=== PATIENT | female | born 1960 | race Caucasian/White ===

== ENCOUNTER → 2016-08-02 | Outpatient (REF) | payer BC | LOC: M SFHCWAGY 13:37 | PROVIDERS: ATTEND Nurse Practitioner Women's Health | DX: R87.810 Cervical high risk human papillomavirus (HPV) DNA test positive (principal) ==

== ENCOUNTER → 2017-01-28 | Outpatient (REF) | payer BC | LOC: M SFHCWAGY 15:10 | PROVIDERS: ATTEND Nurse Practitioner Women's Health | DX: R87.810 Cervical high risk human papillomavirus (HPV) DNA test positive (principal); R87.612 Low grade squamous intraepithelial lesion on cytologic smear of cervix (LGSIL) ==

== ENCOUNTER → 2018-01-31 | Outpatient (CLI) | payer BC | LOC: M WHC 09:22 | DX: Z12.31 Encounter for screening mammogram for malignant neoplasm of breast (principal); Z78.0 Asymptomatic menopausal state | CPT/HCPCS: G0123 ==

== ENCOUNTER → 2018-01-31 | Outpatient (REF) | payer BC | LOC: M SFHCWAGY 09:24 | DX: Z12.4 Encounter for screening for malignant neoplasm of cervix (principal) ==

== ENCOUNTER 2018-07-06 10:25 | Emergency (ER) | payer BC ==
[~2018-07-06] VITALS: Ht 160 cm; Wt 104.5 kg
[2018-07-06] MEDS ORDERED: MAGN500C PO (10:33)
[2018-07-06] MEDS ORDERED: [UNRECOGNIZED DRUG - CODE] PO (10:33)
[2018-07-06] MEDS ORDERED: NS 1,000 ML IV ONE (11:00)
[2018-07-06] MEDS ORDERED: KETOROLAC 30 MG/ML VIAL (J1885) IV ONE (11:00)
[2018-07-06] MEDS ORDERED: ONDANSETRON 4MG/2ML VIAL (J2405) IV ONE (11:00)
[2018-07-06] MEDS ORDERED: GASTROGRAFIN SOLUTION 30ML (Q9963) As Ordered ONE (11:05)
[2018-07-06] MEDS: GASTROGRAFIN SOLUTION 30ML PO SCH ×2 (11:16→11:42)
[2018-07-06 11:26] LABS: BASO % 0.6 % (0.0-1.0); EOS # 0.1 10^3/uL (0.0-0.50); EOS % 1.9 % (0.0-3.0); HEMATOCRIT 34.9 % (36.0-47.0); LYMPH % 28.1 % (24.0-44.0); MEAN CORPUSCULAR HEMOGLOBIN 28.4 pg (27.0-33.0); MEAN CORPUSCULAR HGB CONC 31.5 g/dl (32.0-36.5); MEAN CORPUSCULAR VOLUME 89.9 fl (80.0-96.0); MONO # 0.5 10^3/uL (0.0-0.8); MONO % 6.8 % (0.0-5.0); NEUTROPHILS # 4.3 10^3/uL (1.8-7.7); NEUTROPHILS % 62.5 % (36.0-66.0); PLATELET COUNT, AUTOMATED 327 10^3/uL (150-450); RED BLOOD COUNT 3.88 10^6/uL (4.00-5.40); WHITE BLOOD COUNT 6.9 10^3/uL (4.0-10.0)
[2018-07-06 11:29] LABS: APPEARANCE, URINE CLEAR (CLEAR); BACTERIA, URINE AUTO NEGATIVE (NEGATIVE); BILIRUBIN, URINE AUTO NEGATIVE (NEGATIVE); BLOOD, URINE BLOOD NEGATIVE (NEGATIVE); COLOR, URINE STRAW (YELLOW); GLUCOSE, URINE (UA) AUTO NEGATIVE (NEGATIVE); KETONE, URINE AUTO NEGATIVE (NEGATIVE); LEUKOCYTE ESTERASE, URINE AUTO NEGATIVE (NEGATIVE); NITRITE, URINE AUTO NEGATIVE (NEGATIVE); PROTEIN, URINE AUTO NEGATIVE (NEGATIVE); RBC, URINE AUTO 1 /HPF (0-3); SPECIFIC GRAVITY URINE AUTO 1.003 (1.002-1.035); SQUAMOUS EPITHELIAL CELL UR AU 0 /HPF (0-6); UROBILINOGEN, URINE AUTO 0.2 mg/dL (0.0-2.0); WBC, URINE AUTO 0 /HPF (0-3)
[2018-07-06 12:01] LABS: ALBUMIN 3.4 GM/DL (3.2-5.2); ALT/SGPT 17 U/L (12-78); BILIRUBIN,TOTAL 0.5 MG/DL (0.2-1.0); BLOOD UREA NITROGEN 10 MG/DL (7-18); CALCIUM LEVEL 8.4 MG/DL (8.5-10.1); CARBON DIOXIDE LEVEL 31 MEQ/L (21-32); CHLORIDE LEVEL 105 MEQ/L (98-107); CREATININE FOR GFR 0.72 MG/DL (0.55-1.30); GLOMERULAR FILTRATION RATE > 60.0 (>51); GLUCOSE, FASTING 89 MG/DL (70-100); LIPASE 151 U/L (73-393); POTASSIUM SERUM 3.5 MEQ/L (3.5-5.1); SODIUM LEVEL 143 MEQ/L (136-145); TOTAL PROTEIN 6.7 GM/DL (6.4-8.2)
[2018-07-06] MEDS ORDERED: ISOVUE-370 76% 100ML VIAL (Q9967) As Ordered ONE (12:36)
--- NOTE | 2018-07-06 13:23 | REP ---
CT abdomen and pelvis with IV and oral contrast: History: History of gastric bypass. Bloody stools and abdomen pain. Comparison study: August 06, 2008. CT contrast dose: 100 mL of intravenous Isovue 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 There are scattered small and large bowel air filled loops in the abdomen. The lung bases are clear on axial CT images. The liver and the spleen are normal in size homogeneous in texture. A gastric bypass has been performed, charles-colic technique. There are air-fluid levels in mildly prominent small bowel loops in the central abdomen but no obstructive lesion is seen. A normal appendix is observed. The colon is not dilated. The uterus is tipped to the left somewhat. Urinary bladder is intact. No abdominal wall defect is seen. Kidneys enhance symmetrically and are morphologically intact. There is a 4 mm calculus in the right kidney upper pole. 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 I am not able to tell whether the ureters merge. There is no evidence of hydronephrosis or hydroureter. No abdominal wall defect is seen. No bony abnormality. Impression: Status post gastric bypass procedure and cholecystectomy. There are a few mildly dilated loops in the central abdomen. No obstructive lesion is seen. Left ureteral duplication anomaly. Intrarenal calculus upper pole right kidney 4 mm in diameter. Normal appendix. Electronically Signed by Severiano Salcido MD 07/06/2018 03:10 P
[2018-07-06] MEDS ORDERED: PROT1TAB2 PO (13:29)
[2018-07-06] MEDS ORDERED: CARA1TAB6 PO (13:29)
[2018-07-06] MEDS ORDERED: CIPR-249 PO (13:29)
[2018-07-06] MEDS ORDERED: DICY20TA PO (13:29)
[2018-07-06] MEDS ORDERED: FLOM0.4C39 PO (13:39)
[2018-07-06] MEDS ORDERED: DICYCLOMINE 10 MG CAP PO ONE (13:45)
[2018-07-06] MEDS ORDERED: PANTOPRAZOLE 40MG TAB (PROTONIX) PO ONE (13:45)
[2018-07-06] MEDS ORDERED: GI COCKTAIL 50ML BTL(HYOSCYAMINE/MAALOX/LIDOCAINE VISCOUS)(1:3:1) PO ONE (13:45)
[2018-07-06 13:54] VITALS: BP 132/71
== END 2018-07-06 13:55 | disposition home or self-care (01) ==
LOC: M ED 10:25
DX: R10.9 Unspecified abdominal pain (principal); R11.2 Nausea with vomiting, unspecified; D64.9 Anemia, unspecified; K92.1 Melena
CPT/HCPCS: 74177; 80053; 81001; 83690; 85025; 96374; 96375; 99284; J1885; J2405; Q9967

== ENCOUNTER → 2018-07-25 | Outpatient (REF) | payer BC ==
[~2018-07-25] MED LIST: CARA1TAB6 PO; CIPR-249 PO; DICY20TA PO; FERR325T3 PO; FLOM0.4C39 PO; MAGN500C PO; PROT1TAB2 PO; [UNRECOGNIZED DRUG - CODE] PO
[2018-07-25 20:58] LABS: PERCENT SATURATION 5.9 % (13.2-45.0)
== END ==
LOC: M LAB REF 18:53
PROVIDERS: ATTEND Family Medicine
DX: Z98.84 Bariatric surgery status (principal)

== ENCOUNTER 2018-08-07 07:23 | Day surgery (SDC) | payer BC ==
[~2018-08-07] VITALS: Ht 160 cm; Wt 108.0 kg
[~2018-08-07 07:23] MED LIST changes: +LIDOCAINE 2% INJ 100 MG/5 ML SDV (FOR ANES.) As Ordered ONE
[2018-08-07] MEDS ORDERED: fentaNYL 100 MCG/2 ML INJECTION (J3010) As Ordered ONE (08:00)
[2018-08-07] MEDS ORDERED: PROPOFOL 200 MG/20 ML VIAL As Ordered ONE (08:01)
[2018-08-07] MEDS ORDERED: NS 1,000 ML IV ONE (08:30)
--- NOTE | 2018-08-07 08:52 | ROOR ---
Patient Name: Dalila Li Procedure Date: 08/07/2018 8:35 AM Date of : 1960 Age: 58 Room: [facility] Gender: Female Note Status: Finalized Procedure: Upper Endoscopy + Biopsies Indications: Epigastric abdominal pain, Nausea with vomiting Providers: Luis Reyes MD Referring MD: Thad Duque MD Requesting Provider: Medicines: Monitored Anesthesia Care Complications: No immediate complications. Procedure: Pre-Anesthesia Assessment: - The heart rate, respiratory rate, oxygen saturations, blood pressure, adequacy of pulmonary ventilation, and response to care were monitored throughout the procedure. The Endoscope was introduced through the mouth, and advanced to the second part of duodenum. The upper GI endoscopy was accomplished without difficulty. The patient tolerated the procedure well. Findings: The Z-line was regular and was found 35 cm from the incisors. Evidence of a gastric bypass was found. A gastric pouch with a small size was found. The staple line appeared intact. The gastrojejunal anastomosis was characterized by healthy appearing mucosa. This was traversed. The thezr-im-[id number] limb was characterized by healthy appearing mucosa. Biopsies were taken with a cold forceps for Helicobacter pylori testing. The exam was otherwise without abnormality. Impression: - Z-line regular, 35 cm from the incisors. - Gastric bypass with a small-sized pouch and intact staple line. Gastrojejunal anastomosis characterized by healthy appearing mucosa. Biopsied. - The examination was otherwise normal. Recommendation: - Patient has a contact number available for emergencies. The signs and symptoms of potential delayed complications were discussed with the patient. Return to normal activities tomorrow. Written discharge instructions were provided to the patient. - Resume previous diet. - Discharge patient to home. - Continue present medications. - Await pathology results. - Telephone GI clinic for pathology results in 1 week. - Return to referring physician. - The findings and recommendations were discussed with the patient's family. Luis Reyes MD Luis Reyes MD 08/07/2018 8:52:14 AM This report has been signed electronically. Number of Addenda: 0 Note Initiated On: 08/07/2018 8:35 AM Estimated Blood Loss: Estimated blood loss: none.
[2018-08-07 09:10] VITALS: BP 123/78
== END 2018-08-07 09:15 | disposition home or self-care (01) ==
LOC: M OPP 07:23
PROVIDERS: ATTEND Internal Medicine Gastroenterology
DX: Z98.84 Bariatric surgery status (principal); R10.13 Epigastric pain; R11.2 Nausea with vomiting, unspecified; D64.9 Anemia, unspecified; Z79.899 Other long term (current) drug therapy; Z87.891 Personal history of nicotine dependence
CPT/HCPCS: 43239; 88305; J3010

== ENCOUNTER → 2018-08-25 | Outpatient (REF) | payer BC ==
[~2018-08-25] MED LIST changes: -LIDOCAINE 2% INJ 100 MG/5 ML SDV (FOR ANES.) As Ordered ONE
== END ==
LOC: M LAB REF 11:59
PROVIDERS: ATTEND Family Medicine
DX: D64.9 Anemia, unspecified (principal)

== ENCOUNTER → 2018-12-26 | Outpatient (REF) | payer BC ==
[~2018-12-26] MED LIST changes: +CALC-333 PO; -[UNRECOGNIZED DRUG - CODE] PO
== END ==
LOC: M LAB REF 16:43
PROVIDERS: ATTEND Family Medicine
DX: D64.9 Anemia, unspecified (principal)

== ENCOUNTER → 2019-02-01 | Outpatient (CLI) | payer BC ==
--- NOTE | 2019-02-01 12:30 | REPMRS ---
Patient History The patient states she had a clinical breast exam in 01/2019. Family history of colorectal cancer at age 50 or over in father, breast cancer at age 38 in niece. No Hormone Replacement Therapy Digital Woman Screen Mammo: February 01, 2019 - Exam #: [id number] Bilateral CC and MLO view(s) were taken. Technologist: Ida Diaz, Technologist Prior study comparison: January 31, 2018, bilateral digital woman screen mammo performed at [facility]. July 13, 2016, digital woman screen mammo performed at [facility]. July 03, 2015, digital woman screen mammo performed at [facility]. FINDINGS: The breast tissue is heterogeneously dense. This may lower the sensitivity of mammography. There is a moderate amount of heterogeneously dense fibroglandular tissue which is fairly symmetric. There is no interval development of dominant mass, architectural distortion, or grouped microcalcification typical of malignancy. There has been no change in the appearance of the mammogram from the prior studies. 3-D tomosynthesis shows no additional findings. Assessment: BI-RADS/ACR category 1 mammogram. Negative Mammogram. Recommendation Routine screening mammogram of both breasts in 1 year (for women over age 40). This patient's Lifetime Breast Cancer RIsk is estimated at 11.3 %. This mammogram was interpreted with the aid of an FDA-approved computer-aided dectection system. Electronically Signed By: Serge Salcido MD 02/01/19 1038
== END ==
LOC: M WHC 09:16
PROVIDERS: ATTEND Nurse Practitioner Women's Health
DX: Z12.31 Encounter for screening mammogram for malignant neoplasm of breast (principal)

== ENCOUNTER → 2019-06-27 | Outpatient (REF) | payer BC | LOC: M LAB REF 13:18 | PROVIDERS: ATTEND Family Medicine | DX: D64.9 Anemia, unspecified (principal) ==

== ENCOUNTER → 2019-08-17 | Outpatient (REF) | payer BC | LOC: M LAB REF 13:46 | PROVIDERS: ATTEND Dermatology | DX: L82.1 Other seborrheic keratosis (principal) ==

== ENCOUNTER → 2020-01-01 | Outpatient (REF) | payer BC ==
[~2020-01-01] MED LIST changes: -DICY20TA PO; +DICY20TA3 PO
== END ==
LOC: M LAB REF 18:18
PROVIDERS: ATTEND Family Medicine
DX: D64.9 Anemia, unspecified (principal); Z98.84 Bariatric surgery status

== ENCOUNTER → 2020-02-05 | Outpatient (CLI) | payer BC ==
[~2020-02-05] MED LIST changes: +DICY20TA PO; -DICY20TA3 PO
--- NOTE | 2020-02-05 10:59 | REPMRS ---
Patient History The patient states she has not had a clinical breast exam in over a year. Family history of colorectal cancer at age 50 or over in father, breast cancer at age 38 in niece. No Hormone Replacement Therapy Digital Woman Screen Mammo: February 05, 2020 - Exam #: [id number] Bilateral CC and MLO view(s) were taken. Technologist: Monisha Pretty, Technologist Prior study comparison: February 01, 2019, bilateral digital woman screen mammo performed at [facility]. January 31, 2018, bilateral digital woman screen mammo performed at [facility]. July 13, 2016, digital woman screen mammo performed at [facility]. FINDINGS: There are scattered fibroglandular densities. The Volpara volumetric breast density category is:B. There has been no change in the appearance of the mammogram from the prior studies. There is a mild amount of scattered fibroglandular density which is fairly symmetric. There is no interval development of dominant mass, architectural distortion, or grouped microcalcification suggestive of malignancy. 3-D tomosynthesis shows no additional findings. Assessment: BI-RADS/ACR category 1 mammogram. Negative Mammogram. Recommendation Routine screening mammogram of both breasts in 1 year (for women over age 40). This patient's Lifetime Breast Cancer Risk is estimated at 11.0 %. This mammogram was interpreted with the aid of an FDA-approved computer-aided dectection system. Electronically Signed By: Serge Salcido MD 02/05/20 4163
== END ==
LOC: M WHC 09:29
PROVIDERS: ATTEND Nurse Practitioner Women's Health
DX: Z12.31 Encounter for screening mammogram for malignant neoplasm of breast (principal); Z80.0 Family history of malignant neoplasm of digestive organs

== ENCOUNTER → 2020-06-30 | Outpatient (REF) | payer BC | LOC: M LAB REF 16:24 | PROVIDERS: ATTEND Family Medicine | DX: D50.9 Iron deficiency anemia, unspecified (principal); Z98.84 Bariatric surgery status ==

== ENCOUNTER → 2021-02-27 | Outpatient (CLI) | payer BC ==
[~2021-02-27] MED LIST changes: -DICY20TA PO; +DICY20TA3 PO
--- NOTE | 2021-02-27 16:09 | REPMRS ---
Patient History The patient states she has not had a clinical breast exam in over a year. Family history of colorectal cancer at age 50 or over in father, breast cancer at age 38 in niece. No Hormone Replacement Therapy Patient states no breast complaints today. Patient has signed MRS History Sheet. Digital Woman Screen Mammo: February 27, 2021 - Exam #: [id number] Bilateral CC and MLO view(s) were taken. Technologist: Geovanna Reynolds Technologist Prior study comparison: February 05, 2020, bilateral digital woman screen mammo performed at [facility]. February 01, 2019, bilateral digital woman screen mammo performed at [facility]. January 31, 2018, bilateral digital woman screen mammo performed at [facility]. FINDINGS: There are scattered fibroglandular densities. The Volpara volumetric breast density category is:B. There has been no change in the appearance of the mammogram from the prior studies. There is a mild amount of scattered fibroglandular density which is fairly symmetric. There is no interval development of dominant mass, architectural distortion, or grouped microcalcification suggestive of malignancy. 3-D tomosynthesis shows no additional findings. Assessment: BI-RADS/ACR category 1 mammogram. Negative Mammogram. Recommendation Routine screening mammogram of both breasts in 1 year (for women over age 40). This patient's [facility] Lifetime Breast Cancer Risk is estimated at 10.7 %. This mammogram was interpreted with the aid of an FDA-approved computer-aided dectection system. Electronically Signed By: Serge Salcido MD 02/27/21 0130
== END ==
LOC: M WHC 15:02
PROVIDERS: ATTEND Family Medicine
DX: Z12.31 Encounter for screening mammogram for malignant neoplasm of breast (principal)

== ENCOUNTER → 2021-03-16 | Outpatient (REF) | payer BC | LOC: M LAB REF 16:20 | PROVIDERS: ATTEND Physician Assistant Medical | DX: R30.0 Dysuria (principal) ==

== ENCOUNTER → 2021-05-16 | Outpatient (CLI) | payer BC ==
[~2021-05-16] MED LIST changes: +MAGN500T12 PO; +OYST1TAB5 PO
== END ==
LOC: M LABSMTC 10:33
PROVIDERS: ATTEND Anesthesiology
DX: Z01.818 Encounter for other preprocedural examination (principal); Z11.52 Encounter for screening for COVID-19

== ENCOUNTER 2021-05-20 10:25 | Day surgery (SDC) | payer BC ==
[~2021-05-20] VITALS: Ht 160 cm; Wt 106.3 kg
[~2021-05-20 10:25] MED LIST changes: +NS 1,000 ML IV ONE
--- OUTSIDE RECORDS SUMMARY | 2021-05-20 10:29 | CCD | Continuity of Care Document ---
Author Author Dalila WERNER M.D. Organization Unknown Address [address] [place] [id number] Phone [phone] Care Team Providers Care Test Preparation Tutor Name Role Phone Thad Duque M.D. AUTM [phone] Problems Active Problems Provider Date Neck pain Elbert Werner M.D. Onset: 03/05/2021 Spondylolysis of cervical spine Elbert Werner M.D. Onset: 0 03/05/2021 Spondylolysis Elbert Werner M.D. Onset: 03/05/2021 Low back pain Elbert Werner M.D. Onset: 03/05/2021 Lumbar radiculopathy Elbert Werner M.D. Onset: 03/05/2021 Bilateral carpal tunnel syndrome Elbert Werner M.D. Onset: 03/05/2021 Cervical radiculopathy Elbert Werner M.D. Onset: 03/05/2021 Social History Type Date Description Comments Sex Unknown Allergies, Adverse Reactions, Alerts Description No Information Available Medications Description No Active Medications Immunizations Description No Information Available Vital Signs Description No Information Available Results Description No Information Available Procedures Date Code Description Status 04/02/2021 79711 Office/Outpatient Established Mo d MDM 30-39 Min Completed 03/12/2021 82768 MRI Spine Cervical W/O Contrast Completed 03/12/2021 51934 MRI Spine Cervical W/O Contrast Completed 03/05/2021 56888 Office/Outpatient New Moderate M DM 45-59 Minutes Completed Medical Devices Description No Information Available Encounters Type Date Location Provider Dx Diagnosis Office Visit 04/02/2021 2:00p Main office [place] Elif Singleton M54.2 Cervicalgia M43.02 Spondylolysis, cervical mathieu on M54.12 Radiculopathy, cervical mathieu on M43.06 Spondylolysis, lumbar region M54.5 Low back pain M54.16 Radiculopathy, lumbar region G56.03 Carpal tunnel syndrome, bila teral upper limbs Office Visit 03/05/2021 8:30a Main office - [place] Elif Singleton M54.2 Cervicalgia M43.02 Spondylolysis, cervical mathieu on M43.06 Spondylolysis, lumbar region M54.5 Low back pain M54.16 Radiculopathy, lumbar region M54.12 Radiculopathy, cervical mathieu on G56.03 Carpal tunnel syndrome, bila teral upper limbs Assessments Date Code Description Provider 04/02/2021 M54.2 Cervicalgia Elbert Werner M.D. 04/02/2021 M43.02 Spondylolysis, cervical region Eunice Werner M.D. 04/02/2021 M54.12 Radiculopathy, cervical region Eunice Werner M.D. 04/02/2021 M43.06 Spondylolysis, lumbar region Evan Werner M.D. 04/02/2021 M54.5 Low back pain Elbert Werner M.D. 04/02/2021 M54.16 Radiculopathy, lumbar region Evan Werner M.D. 04/02/2021 G56.03 Carpal tunnel syndrome, bilatera l upper limbs Elbert Werner M.D. 03/12/2021 M54.2 Cervicalgia Alie Ede Pearson 03/12/2021 M54.2 Cervicalgia MRI 03/12/2021 M43.02 Spondylolysis, cervical region A bdul Michel, ElifDArnaldo 03/12/2021 M43.02 Spondylolysis, cervical region M RI 03/12/2021 M54.12 Radiculopathy, cervical region A bdul Michel, ElifDArnaldo 03/12/2021 M54.12 Radiculopathy, cervical region RI 03/05/2021 M54.2 Cervicalgia Elbert Werner M.D. 03/05/2021 M43.02 Spondylolysis, cervical region Eunice Werner M.D. 03/05/2021 M43.06 Spondylolysis, lumbar region Evan Werner M.D. 03/05/2021 M54.5 Low back pain Elbert Werner M.D. 03/05/2021 M54.16 Radiculopathy, lumbar region Evan Werner M.D. 03/05/2021 M54.12 Radiculopathy, cervical region Eunice Werner M.D. 03/05/2021 G56.03 Carpal tunnel syndrome, bilatera l upper limbs Elbert Werner M.D. Plan of Treatment No Information Available Functional Status Description No Information Available Mental Status Description No Information Available Referrals Refer to Dr Reason for Referral Status Appt Date Elbert Werner M.D. Created [facility] [place] [address] [phone]
--- OUTSIDE RECORDS SUMMARY | 2021-05-20 10:29 | CCD | Continuity of Care Document ---
Author Author Dalila DAMON Organization Unknown Address [address] [place] [address] Phone [phone] Care Team Providers Care Account Manager Sales Representative Name Role Phone Thad Duque MD AUTM [phone] Problems Active Problems Provider Date Headache Thad Duque M.D. Onset: 10/23/2015 Benign paroxysmal positional vertigo nystagmus Onset: 01/21/2010 Dermatitis Onset: 10/23/2009 Peptic reflux disease Onset: 01/23/2008 Social History Type Date Description Comments Sex Unknown ETOH Use Occasionally consumes alcohol So cially on the Weekends Tobacco Use Start: Unknown End: Unknown Patient is a former smoker 1 1/2 PPD x 13 yrs, Quit 1988 Allergies, Adverse Reactions, Alerts Description No Known Drug Allergies Medications Active Medications SIG Qnty Indications Ordering Provide r Date Nitrofurantoin Monohydrate/Macrocrystals 100mg Capsules take one by mouth twice a day for 5 days 10caps MALLORY Hooks JR 03/16/2021 Ferrous Sulfate 325(65Fe) mg Table ts 1 by mouth every day 90tabs Thad Duque M.D. 07/26/2018 CBD Thad Duque M.D. 02/2019 Magnesium 500mg Capsules 1 by mouth every day KG ClaytonP 08/10/2017 Calcium 600+D3 [id number] Tabl ets 1 by mouth twice a day 90tabs Jomar Thompson [facility] 08/10/2017 Vitamin C 500mg Capsules 1 po every day 90caps Jomar Thompson [facility] 08/10/2017 Medications Administered in Office Medication SIG Qnty Indications Ordering Provider Date Immunization Adminstration,1 Vaccine/Tox oid Injection Thad Duque M.D. 019 Immunization Adminstration,1 Vaccine/Tox oid Injection Thad Duque M.D. 019 Immunizations CPT Code Status Date Vaccine Lot # [id number] Given 06/27/2019 Influenza Vaccin e Quadrivalent Preser/Antibiotic Free Im Use [id number] Given 07/25/2018 Influenza Virus Vaccine, Quadrivalent (Cciiv4), Derived From 0 Refused 04/17/2010 Influenza Virus Vaccine Vital Signs Date Vital Result Comment 03/16/2021 11:02am BP Systolic 128 mmHg BP Diastolic 78 mmHg Heart Rate 60 /min Weight 231.00 lb 01/14/2021 10:30am BP Systolic 126 mmHg BP Diastolic 76 mmHg Heart Rate 72 /min Weight 241.00 lb Results Test Acquired Date Facility Test Result H/L Range Note Laboratory test finding 03/16/2021 [id number] [place], [place] [id number] [phone] Urine Culture FULL REPORT IN L <SEE NOTE> Normal 1 Ua Dipstick Only 03/16/2021 [facility] Computer Systems Software Architect: [place] [address] [phone] Urine Color YELLOW Yellow Urine Appearance CLEAR [place] Urine PH 6.0 units 5.0 - 9.0 Urine Specific [place] 1.010 1.005 - 1.030 Urine Leukocytes NEGATIVE Negative Urine Blood NEGATIVE Negative Urine Protein NEGATIVE Negative -Trace Urine Glucose NEGATIVE mg/dL Negative Urine Nitrite NEGATIVE Negative Urine Ketone NEGATIVE mg/dL Negative Urine Bilirubin NEGATIVE Negative Urine Urobilinogen 0.2 mg/dL 0.2 - 1.0 Complete Blood Count 01/12/2021 [facility] Computer Systems Software Architect: [place] [address] [phone] WBC 5.6 x10*3/UL 4.1 - 10.9 RBC 4.33 x10*6/UL 4.20 - 6.30 Hemoglobin 13.6 g/dL 12.0 - 18.0 Hematocrit 40.2 % 37.0 - 51.0 MCV 93.0 fL 80.0 - 97.0 MCH 31.6 pg 26.0 - 32.0 MCHC 33.9 g/dL 31.0 - 38.0 RDW 12.9 % 11.6 - 13.7 PLT 237 x10*3/UL 140 - 440 MPV 9.2 FL 7.8 - 11.0 Lymph % 32.5 % 10.0 - 58.5 Mid % 8.3 % 1.7 - 9.3 Neut % 59.2 % 37.0 - 92.0 Lymph # 1.8 x10*3/UL 0.6 - 4.1 Mid # 0.5 x10*3/UL 0.1 - 0.6 Neut # 3.3 x10*3/UL 2.0 - 7.8 Comprehensive Chem Profile 01/12/2021 [facility] Computer Systems Software Architect: [place] [address] [phone] Glucose 89 mg/dL 74 - 99 2 BUN 13 mg/dL 7 - 18 Creatinine 0.7 mg/dL 0.6 - 1.3 Sodium 144 mEq/L 136 - 145 Potassium 4.1 mEq/L 3.5 - 5.1 Chloride 106 mEq/L 98 - 107 Carbon Dioxide 33 mEq/L High 21 - 32 Calcium 8.6 mg/dL 8.5 - 10.1 Alk. Phosphatase 90 mg/dL 46 - 116 Total Bilirubin 0.6 mg/dL 0.2 - 1.0 Ast (Sgot) 25 U/L 15 - 37 Alt (SGPT) 23 U/L 12 - 78 Albumin 3.5 g/dL 3.4 - 5.0 Total Protein 6.3 g/dL Low 6.4 - 8.2 3 A/G Ratio 1.25 CALC 1.00 - 1.90 GFR >= 60 mL/min >60 GFR >= 60 mL/min >60 4 Lipid Profile 01/12/2021 [facility] Computer Systems Software Architect: [place] [address] [phone] Cholesterol 165 mg/dL 131 - 200 Triglycerides 47 mg/dL 30 - 150 HDL Cholesterol 75 mg/dL High 35 - 60 LDL (Calculated) 81 CALC 50 - 159 1 FULL REPORT IN LAB NOTES (eC W and Medent). NO GROWTH 2 100-125 mg/dL PRE-DIABET ES/FASTING >126 mg/dL DIABETES/FASTING 3 NOTE: RESULT VERIFIED. 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 E78.5 Hyperlipidemia, unspecified D50.9 Iron deficiency anemia, unsp ecified K21.9 Gastro-esophageal reflux dis ease without esophagitis M54.5 Low back pain R25.2 Cramp and spasm R20.2 Paresthesia of skin Z98.84 Bariatric surgery status Z80.0 Family history of malignant neoplasm of digestive organs R07.89 Other chest pain Assessments Date Code Description Provider 03/16/2021 R30.0 Dysuria MALLORY Jade JR 01/14/2021 E78.5 Hyperlipidemia, unspecified Nahomi Duque M.D. 01/14/2021 D50.9 Iron deficiency anemia, unspecif ied Thad Duque M.D. 01/14/2021 K21.9 Gastro-esophageal reflux disease without esophagitis Thad Duque M.D. 01/14/2021 M54.5 Low back pain Thad Duque M.D. 01/14/2021 R25.2 Cramp and spasm Thad Duque M.D. 01/14/2021 R20.2 Paresthesia of skin Thad cobb M.D. 01/14/2021 Z98.84 Bariatric surgery status Thad Duque M.D. 01/14/2021 Z80.0 Family history of malignant neop lasm of digestive organs Thad Duque M.D. 01/14/2021 R07.89 Other chest pain Thad Duque M.D. 01/12/2021 D50.9 Iron deficiency anemia, unspecif ied Thad Duque M.D. 01/12/2021 D50.9 Iron deficiency anemia, unspecif ied Lab Schedule 01/12/2021 K21.9 Gastro-esophageal reflux disease without esophagitis Thad Duque M.D. 01/12/2021 K21.9 Gastro-esophageal reflux disease without esophagitis Lab Schedule 01/12/2021 E78.5 Hyperlipidemia, unspecified Nahomi Duque M.D. 01/12/2021 E78.5 Hyperlipidemia, unspecified Lab Schedule Plan of Treatment Future Appointment(s):* 07/14/2021 8:40 am - Lab Schedule at [facility] * 07/16/2021 9:30 am - Thad Duque M.D. at [facility] 01/14/2021 - Thad Duque M.D.* E78.5 Hyperlipidemia, unspecified * D50.9 Iron deficiency anemia, unspecified * K21.9 Gastro-esophageal reflux disease without esophagitis * M54.5 Low back pain * R25.2 Cramp and spasm * R20.2 Paresthesia of skin * Z98.84 Bariatric surgery status * Z80.0 Family history of malignant neoplasm of digestive organs * R07.89 Other chest pain * * Comments:* 1. Hyperlipidemia: Good results with diet alone. She is encouraged to continue to maintain a low cholesterol diet and regular exercise regimen. We will monitor.2. Iron deficiency anemia: Normal CBC on iron supplement, will continue and monitor.3. Gastro-esophageal reflux disease without esophagitis: Requires TUMS for symptoms control, will continue and monitor.4. Low back pain: Generally stable, doing the CBD oil. She had benefit from chiropractic therapy and was evaluated by Dr. J Luis Villalta at [facility]. She will follow up if necessary and continue current management. 5. Cramp and spasm: Essentially doing okay. Stay well hydrated and continue magnesium supplement.6. Bariatric surgery status: Stable. We will monitor.7. Family history of malignant neoplasm of digestive organs: Patient is re-referred to Dr. Luis Reyes for colonoscopy and last one was on 06/02/2016 with 5-year follow up. No specimens were collected at that time. We will continue to monitor.8. Paresthesia of skin: Especially involving arms. We discussed differential diagnosis and she understands this. She will let me know if her symptoms worsen.Ongoing cares: We will do an EKG on her w ay out. I am going to see her again in 6 months for a Well Visit with CMP, lipids, TSH and CBC. If she has new problems or issues sooner she will let us know. Functional Status Description No Information Available Mental Status Description No Information Available Referrals Refer to Dr Reason for Referral Status Appt Date Elbert Werner MD CONSULT FOR BILAT UPPER EXTREMITY PARESTHESIA P atient Notified 03/05/2021 [address] [place] [address] [phone] Luis Reyes MD CONSULT FOR SCREENING COLONOSCOPY Patien t Notified 04/02/2021 [address] [facility] [address] [phone]
--- OUTSIDE RECORDS SUMMARY | 2021-05-20 10:29 | CCD | Continuity of Care Document ---
Author Author Dalila WHIPPLE Organization Unknown Address [address] [place] [address] Phone [phone] Care Team Providers Care Blasting Miner Name Role Phone Thad Duque M.D. AUTM [phone] Problems Active Problems Provider Date Neck pain [...] Information Available Procedures Date Code Description Status 03/12/2021 15497 MRI Spine Cervical W/O Contrast Completed 03/12/2021 37385 MRI Spine Cervical W/O Contrast Completed 03/05/2021 37159 Office/Outpatient New Moderate M DM 45-59 Minutes Completed Medical Devices Description No Information Available Encounters Type Date Location Provider Dx Diagnosis Office Visit 03/05/2021 [facility] M54.2 Cervicalgia M43.02 Spondylolysis, cervical mathieu on M43.06 Spondylolysis, lumbar region M54.5 Low back pain M54.16 Radiculopathy, lumbar region M54.12 Radiculopathy, cervical mathieu on G56.03 Carpal tunnel syndrome, bila teral upper limbs Assessments Date Code Description Provider 03/12/2021 M54.2 Cervicalgia Alie Michel, MArnaldoD Arnaldo 03/12/2021 M54.2 Cervicalgia MRI 03/12/2021 M43.02 Spondylolysis, cervical region A bdul Michel, M.DArnaldo 03/12/2021 M43.02 Spondylolysis, cervical region M RI 03/12/2021 M54.12 Radiculopathy, cervical region A bdul Michel, M.DArnaldo 03/12/2021 M54.12 Radiculopathy, cervical region M RI 03/05/2021 M54.2 Cervicalgia Elbert Werner M.D. 03/05/2021 M43.02 Spondylolysis, cervical region M dana Werner M.D. 03/05/2021 M43.06 Spondylolysis, lumbar region Evan Werner M.D. 03/05/2021 M54.5 Low back pain Elbert Werner M.D. 03/05/2021 M54.16 Radiculopathy, lumbar region Evan Werner M.D. 03/05/2021 M54.12 Radiculopathy, cervical region Eunice Werner M.D. 03/05/2021 G56.03 Carpal tunnel syndrome, bilatera l upper limbs Elbert Werner M.D. Plan of Treatment Future Appointment(s):* 04/10/2021 9:00 am - Elbert Werner M.D. at [facility] Functional Status Description No Information Available Mental Status Description No Information Available Referrals Refer to Reason for Referral Status Appt Date Elbert Werner M.D. Created [facility] [place] [address] [phone]
--- OUTSIDE RECORDS SUMMARY | 2021-05-20 10:29 | CCD | Continuity of Care Document ---
Author Author Dalila DAMON Organization Unknown Address [address] [place] [address] Phone [phone] Care Team Providers Care Indirect Fire Infantryman Name Role Phone Thad Duque MD AUTM [phone] Problems Active Problems Provider Date Headache Thad [...] every day KG ClaytonP 08/10/2017 Calcium 600+D3 [id number] Tabl ets 1 by mouth twice a day 90tabs Jomar Thompson [facility] 08/10/2017 Vitamin C 500mg Capsules 1 po every day 90caps Jomar Thompson [facility] 08/10/2017 Medications Administered in Office Medication SIG Qnty Indications Ordering Provider Date Immunization Adminstration,1 Vaccine/Tox oid Injection Thad Duque M.D. 019 Immunization Adminstration,1 Vaccine/Tox oid Injection Thad Duque M.D. 019 Immunizations CPT Code Status Date Vaccine Lot # [id number] Given 06/27/2019 Influenza Vaccin e Quadrivalent Preser/Antibiotic Free Im Use [id number] Given 07/25/2018 Influenza Virus Vaccine, Quadrivalent (Cciiv4), Derived From 3 Refused 04/17/2010 Influenza Virus Vaccine Vital Signs Date Vital Result Comment 03/16/2021 11:02am BP Systolic 128 mmHg BP Diastolic 78 mmHg Heart Rate 60 /min Weight 231.00 lb 01/14/2021 10:30am BP Systolic 126 mmHg BP Diastolic 76 mmHg Heart Rate 72 /min Weight 241.00 lb Results Test Acquired Date Facility Test Result H/L Range Note Laboratory test finding 03/16/2021 [address] [place], [place] [id number] [phone] Urine Culture FULL REPORT IN L <SEE NOTE> Normal 1 Ua Dipstick Only 03/16/2021 [facility] Supervisor Film Processing: [place] [address] [phone] Urine Color YELLOW Yellow Urine Appearance CLEAR Clear Urine PH 6.0 units 5.0 - 9.0 Urine Specific [place] 1.010 1.005 - 1.030 Urine Leukocytes NEGATIVE Negative Urine Blood NEGATIVE Negative Urine Protein NEGATIVE Negative -Trace Urine Glucose NEGATIVE mg/dL Negative Urine Nitrite NEGATIVE Negative Urine Ketone NEGATIVE mg/dL Negative Urine Bilirubin NEGATIVE Negative Urine Urobilinogen 0.2 mg/dL 0.2 - 1.0 Complete Blood Count 01/12/2021 [facility] Supervisor Film Processing: [place] [address] [phone] WBC 5.6 x10*3/UL 4.1 - 10.9 RBC [...] 2.0 - 7.8 Comprehensive Chem Profile 01/12/2021 [facility] Supervisor Film Processing: [place] [address] [phone] Glucose 89 mg/dL 74 - 99 2 [...] 60 mL/min >60 4 Lipid Profile 01/12/2021 [facility] Supervisor Film Processing: [place] [address] [phone] Cholesterol 165 mg/dL 131 - 200 Triglycerides [...] LITTLE GFR LEFT ESRD GFR <15 ON [facility] ASSISTANT DIRECTOR Procedures Date Code Description Status 03/16/2021 30494 Office/Outpatient Established SF MDM 10-19 Min Completed 02/27/2021 [id number] Mammogram Completed 01/14/2021 53871 Office/Outpatient Established Mo d MDM 30-39 Min Completed 01/14/2021 47920 EKG/Interpretation & Report Comp leted 01/31/2018 [id number] Mammogram Completed 07/13/2016 [id number] Mammogram Completed 06/02/2016 [id number] Colonoscopy Completed 2011 [id number] Mammogram Completed Medical Devices Description No Information Available Encounters Type Date Location Provider Dx Diagnosis Office Visit 03/16/2021 11:00a [facility] PMALLORY Gurrola JR R30.0 Dysuria R35.0 Frequency of micturition Office Visit 01/14/2021 10:30a [facility] P[facility]osselin Duque M.D. E78.5 Hyperlipidemia, unspecified D50.9 Iron deficiency anemia, unsp ecified K21.9 Gastro-esophageal reflux dis ease without esophagitis M54.5 Low back pain R25.2 Cramp and spasm R20.2 Paresthesia of skin Z98.84 Bariatric surgery status Z80.0 Family history of malignant neoplasm of digestive organs R07.89 Other chest pain Assessments Date Code Description Provider 03/16/2021 R30.0 Dysuria MALLORY Jade JR 03/16/2021 R35.0 Frequency of micturition MALLORY Hooks JR 01/14/2021 E78.5 Hyperlipidemia, unspecified Hermanso juan Duque M.D. 01/14/2021 D50.9 Iron deficiency anemia, [...] 07/14/2021 8:40 am - Lab Schedule at [facility] * 07/16/2021 9:30 am - Thad Duque M.D. at [facility] 01/14/2021 - Thad Duque M.D.* [...] evaluated by Dr. J Luis Villalta at [facility]. She will follow up if necessary and [...] EXTREMITY PARESTHESIA P atient Notified 03/05/2021 [address] [place], [place] [id number] [phone] Luis Reyes MD CONSULT FOR SCREENING COLONOSCOPY Patien t Notified 04/02/2021 [address] [facility] [id number] [phone]
--- OUTSIDE RECORDS SUMMARY | 2021-05-20 10:29 | CCD | Continuity of Care Document ---
Author Author Dalila REYES Organization Unknown Address [address] [place] [address] Phone [phone] Care Team Providers Care Tint Layer Name Role Phone Thad Duque M.D. AUTM [phone] Problems Active Problems Provider Date Screening for malignant neoplasm of colon Luis martinez M.D. Onset: 04/22/2016 Abdominal pain Luis Reyes M.D. Onset: 07/07/20 18 Social History Type Date Description Comments Sex Unknown ETOH Use Occasionally Tobacco Use Start: Unknown End: Unknown Patient is a former smoker Allergies, Adverse Reactions, Alerts Description No Known Drug Allergies Medications Active Medications SIG Qnty Indications Ordering Provide r Date Sutab [id number] Tablets as directed 1box Luis Reyes M.D. 04/02/2021 Iron 28mg Tablets Unknown Multiple Vitamin Tablets Unknown Immunizations Description No Information Available Vital Signs Date Vital Result Comment 04/02/2021 10:50am Height 63 inches 5'3" Weight 235.00 lb BP Systolic 130 mmHg BP Diastolic 82 mmHg Heart Rate 67 /min BMI (Body Mass Index) 41.6 kg/m2 Weight 106.596 kg Body Temperature 97.6 F 07/07/2018 11:46am Height 63 inches 5'3" Weight 245.00 lb BP Systolic 127 mmHg BP Diastolic 79 mmHg Heart Rate 90 /min BMI (Body Mass Index) 43.4 kg/m2 Weight 111.132 kg Results Description No Information Available Procedures Date Code Description Status 04/02/2021 04728 Office/Outpatient Established Lo w MDM 20-29 Min Completed Medical Devices Description No Information Available Encounters Type Date Location Provider Dx Diagnosis Office Visit 04/02/2021 10:45a Main Office Luis Reyes M.D. Z 80.0 Family history of malignant neoplasm of digestive organs Assessments Date Code Description Provider 04/02/2021 Z80.0 Family history of cancer of colo n Luis Reyes M.D. Plan of Treatment Future Appointment(s):* 05/20/2021 11:45 am - Luis Reyes M.D. at Main Office 04/02/2021 - Luis Reyes M.D.* Z80.0 Family history of cancer of colon* Comments:* 60 yo wf who presents for a repeat screening colonoscopy due to a family h/o colon cancer in her father. Last scope was in 2015. No c/o abdominal pain, weight loss, change in bowel habits, or rectal bleeding. Plan :1.Setup colonoscopy.2. Informed consent given. Functional Status Description No Information Available Mental Status Description No Information Available Referrals Description No Information Available
--- OUTSIDE RECORDS SUMMARY | 2021-05-20 10:30 | CCD ---
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 ([facility]) ID Date Data Source [id number] 01/12/2021 08:10:00 AM EDT [facility] ([facility]) Name Value Range Interpretation Code Description Data Kimberly rce(s) Supporting Document(s) Cholesterol [Mass/volume] in Serum or Plasma 165 mg/dL 131-200 [facility] ([facility]) Triglyceride [Mass/volume] in Serum or Plasma 47 mg/dL 30-150 [facility] ([facility]) Cholesterol in HDL [Mass/volume] in Serum or Plasma 75 mg/dL 35-60 [facility] ([facility]) Cholesterol in LDL [Mass/volume] in Serum or Plasma by calcu lation 81 CALC 50-159 [facility] ID Date Data Source [id number] 01/12/2021 08:10:00 AM EDT [facility] ([facility]) Name Value Range Interpretation Code Description Data Kimberly rce(s) Supporting Document(s) Urea nitrogen [Mass/volume] in Serum or Plasma 13 mg/dL 7-18 [facility] ([facility]) Glucose [Mass/volume] in Serum or Plasma 89 mg/dL 74-99 [facility] 100-125 mg/dL PRE-DIABETES/FASTING >126 mg/dL DIABETES/FASTING Sodium [Moles/volume] in Serum or Plasma 144 meq/L 136-145 [facility] ([facility]) Creatinine 0.7 mg/dL 0.6-1.3 [facility] Potassium [Moles/volume] in Serum or Plasma 4.1 meq/L 3.5-5.1 [facility] ([facility]) Chloride [Moles/volume] in Serum or Plasma 106 meq/L 98-107 [facility] ([facility]) Calcium [Mass/volume] in Serum or Plasma 8.6 mg/dL 8.5-10.1 [facility] ([facility]) Carbon dioxide, total [Moles/volume] in Serum or Plasma 33 meq/L 21 -32 [facility] ([facility]) Total Bilirubin 0.6 mg/dL 0.2-1.0 [facility] ([facility]) Alkaline phosphatase isoenzyme [Units/volume] in Serum or Pl asma 90 mg/dL 46-116 [facility] ([facility]) Aspartate aminotransferase [Enzymatic activity/volume] in Serum or Plasma 25 U/L 15-37 [facility] ([facility] ) Albumin [Mass/volume] in Serum or Plasma 3.5 g/dL 3.4-5.0 [facility] ([facility]) Alanine aminotransferase [Enzymatic activity/volume] in Seru m or Plasma 23 U/L 12-78 [facility] ([facility]) A/G Ratio 1.25 CALC 1.00-1.90 [facility] ([facility]) Proteinase 3 Ab [Units/volume] in Serum 6.3 g/dL 6.4-8.2 [facility] ([facility]) NOTE: RESULT VERIFIED. Glomerular filtration rate/1.73 sq M pre dicted among blacks [Volume Rate/Area] in Serum or Plasma by Creatinine-based formula (MDRD) Laboratory test result [facility] <content>CHRONIC KIDNEY DISEASE STAGING PER NKF</content>
<content></content>
<content>STAGE I & II GFR >= 60 NORMAL TO MILDLY DECREASED</content>
<content>STAGE III GFR 30-59 MODERATELY DECREASED</content>
<content>STAGE IV GFR 15-29 SEVERELY DECREASED</content>
<content>STAGE V GFR <15 VERY LITTLE GFR LEFT</content>
<content>ESRD GFR <15 ON APPEALS ASSISTANT</content>
<content></content> Glomerular filtration rate/1.73 sq M pre dicted among non-blacks [Volume Rate/Area] in Serum or Plasma by Creatinine-based formula (MDRD) Laboratory test result [facility] ([facility] ) ID Date Data Source [id number] 01/12/2021 08:10:00 AM EDT [facility] ([facility]) Name Value Range Interpretation Code Description Data Kimberly rce(s) Supporting Document(s) Leukocytes [#/volume] in Blood by Automated count 5.6 x10*3/UL 4.1-10 .9 [facility] ([facility]) Hemoglobin [Mass/volume] in Blood 13.6 g/dL 12.0-18.0 [facility] ([facility]) Erythrocytes [#/volume] in Blood by Automated count 4.33 x10*6/UL 4.2 0-6.30 [facility] MCV 93.0 fL 80.0-97.0 [facility] ([facility] Hematocrit [Volume Fraction] of Blood by Automated count 40.2 % 3 7.0-51.0 [facility] ([facility]) MCH 31.6 pg 26.0-32.0 [facility] ([facility]) MCHC 33.9 g/dL 31.0-38.0 [facility] ([facility]) Erythrocyte distribution width [Ratio] by Automated count 12.9 % 11.6-13.7 [facility] Platelets [#/volume] in Blood by Automated count 237 x10*3/UL 140-440 [facility] ([facility]) MPV 9.2 FL 7.8-11.0 [facility] ([facility]) Lymph % 32.5 % 10.0-58.5 [facility] ([facility] Neut % 59.2 % 37.0-92.0 [facility] Mid % 8.3 % 1.7-9.3 [facility] Lymph # 1.8 x10*3/UL 0.6-4.1 [facility] ([facility]) Mid # 0.5 x10*3/UL 0.1-0.6 [facility] ([facility]) Neut # 3.3 x10*3/UL 2.0-7.8 [facility] ([facility]) ID Date Data Source [id number] 09/10/2020 07:39:00 AM [facility] 1 OrderSheet [facility] Department [address] [place] [address] Phone #: ext- [phone] 09/10/2020 07:38 Patient: TRENA BRYANT Sex: F : 1960 Age: 60yWEIGHT:108.8 kg (S) HEIGHT:63 inches (S) BMI:42.5ALLERGIES: NoneCHIEF COMPLAINT: irritation, eyelid swellingDIAGNOSIS: Immune hypersensitivity reactionLAB ORDERSOrder Description Priority Entered Acknowledged InitialedDIAGNOSTIC STUDY ORDERSOrder Description Priority Entered Acknowledged InitialedMEDICATION/IV/DRIP/FLUID ORDERSOrder Description Priority Entered Acknowledged InitialedZyrTEC PO 10 mg 08:14 09/10/2020 08:39 Thalia Anderson Riccardo Frank R.N. M.D.;GENERAL ORDERSOrder Description Priority Entered Acknowledged Initialed[Electronically signed by Haim Anderson R.N. (09:09/10/2020)][Electronically signed by Shiv Vásquez M.D. (12:24 09/10/2020)][Electronically locked by Haim Anderson R.N. (:09/10/2020)] Name Value Range Interpretation Code Description Data Kimberly rce(s) Supporting Document(s) ID Date Data Source [id number] 09/10/2020 07:39:00 AM [facility] 1 Medication Reconciliation Report [facility] Department [address] [place] [address] Phone #: [phone] 09/10/2020 07:38 [id number] Sex[facility] : 1960 Age: 60yWeight: 108.8 kgHeight/Length: 63 in.BMI: 42.5ALLERGIES: NoneThe patient's Home Medications are listed below:NONE.The source(s) of the original Home Medication information:Not obtained.The following Medications were given to the patient in the Emergency Department:Zyrtec [PO] PO 10 mg, administered: 08:39 09/10/2020The following Medications were prescribed to the patient:Benadryl Allergy 25 mg tablet Take 1 tablet four times a day as needed for 5 days -- Dispense 20 tablet.Refills: 1. Substitution permitted.[facility] [place] [address]. .Zyrtec 10 mg tablet Take 1 tablet once a day for 14 days -- Dispense 14 tablet. Refills: 1. Substitutionpermitted.[place] [place] [address]. . -- Shiv Vásquez M.D. Name Value Range Interpretation Code Description Data Kimberly rce(s) Supporting Document(s) ID Date Data Source [id number] 09/10/2020 07:39:00 AM EST [facility] 1 Medication Administration Record [facility] [address] [place] [address] Phone #: ext- [phone] 09/10/2020 07:38 Patient: TRENA BRYANT Sex: F : 1960 Age: 60yWeight: 108.8 kgHeight/Length: 63 inBMI: 42.5ALLERGIES: None Date/Time Medication Administered Medication OrderedGiven ZYRTEC [PO] (CETIRIZINE HCL) ZyrTEC PO 10 mg08:39 09/10/2020 Dose: 10 mg Tablets Haim Bernardo R.N. Name Value Range Interpretation Code Description Data Kimberly rce(s) Supporting Document(s) ID Date Data Source [id number] 09/10/2020 07:39:00 AM EST [facility] 1 General Instructions [facility] [address] [place] [address] Phone #: ext- [phone] 09/10/2020 07:38 Patient: TRENA BRYANT Sex: F : 1960 Age: 60yLocalized allergic reaction secondary to mascara (B/L upper lid s welling).INSTRUCTIONS (PLEASE STOP USE OF MASCARA FOR AT LEAST 1 WEEK; USE COLD COMPRESSES NEEDED).Warnings: Further evaluation is necessary (eye MD). It is very important to follow up with a healthcareprovider.GENERAL WARNINGS: Return or contact your physician immediately if your condition worsens orchanges unexpectedly, if not improving as expected, or if other problems arise. Specifically return if pain,vomiting, bleeding, breathing difficulty or fever greater than 102 degrees F and not controlled byacetaminophen or ibuprofen.Your Current Medications: .No home medication.Prescription Medications:Benadryl Allergy 25 mg tablet Take 1 tablet four times a day as needed for 5 days -- Dispense 20 tablet.Refills: 1. Substitution permitted.Pharmacy - [facility] [address], [place] [phone]. .Zyrtec 10 mg tablet Take 1 tablet once a day for 14 days -- Dispense 14 tablet. Refills: 1. Substitutionpermitted.Pharmacy - [facility] - [address] [facility] ; [place], [place] [phone]. .Follow-up:Return to the emergency department as needed. Follow up with an welding lead burner in three days even ifwell. Call for an appointment. Reason for referral: evaluation and treatment. Summary of care provided topatient via paper.Understanding of the discharge instructions verbalized by patient. Expected course of illness, dischargeinstructions, activity level, diet, prescriptions x2, follow-up appointment and risks and benefits of treatmentreviewed with patient and understanding verbalized. Agrees to plan of care. 2 General Instructions [facility] [address] [place] [address] Phone #: ext- [phone] 09/10/2020 07:38 [id number] Sex: F : 1960 Age: 60y(Electronically signed by Shiv Vásquez M.D. 09/10/2020 12:24) Name Value Range Interpretation Code Description Data Kimberly rce(s) Supporting Document(s) ID Date Data Source [id number] 09/10/2020 07:39:00 AM EST [facility] 1 Clinical Report - Nurses [facility] Department [address] [place] [address] Phone #: [phone] 09/10/2020 07:38 Patient: TRENA BRYANT Sex: F : 1960 Age: 60yTRIAGEArrived by private vehicle. Historian: patient. Unaccompanied. ( both eyes burning, itchy and swollenbut right eye was swollen shut this am).Acuity: LEVEL 2.Chief Complaint: RIGHT EYE PROBLEM. LEFT EYE PROBLEM. (itchy swollen).Alert.Onset. (1 week). The patient has had eye discomfort and eye irritation.Treatment ARCHITECT:None.SEPSIS SCREEN: SIRS SCREEN NEGATIVE. SEPSIS SCREEN NEGATIVE. No suspected or confirmedsigns of infection present.VISUAL ACUITY: Visual acuity performed: left eye 20/20 minus one letter; right eye 20/15; both eyes 20/15minus one letter. --07:45 09/10/20 Maite Lock R.N.07:38 09/10/20. BP: 124/81. MAP: 95. HR: 58. RR: 18. O2 saturation: 98%. Temp: 97.9 F. Pain level now:10/25. --07:45 09/10/20 Maite Lock R.N.( pt states she does have a history of dry eyes and was on something to use at night but she did not likeit). --07:46 09/10/20 Maite Lock R.N.Weight: 108.8 kg stated. Height/Length: 63 inches Per Patient. BMI: 42.5. --07:38 09/10/20 Maite Lock R.N.MedicationsNone. --07:40 09/10/20 Maite Lock R.N.AllergiesNone. --07:40 09/10/20 Maite Lock R.N.PROBLEMS:Gallstone(s).Diarrhea.Abdominal Pain.Vomiting.Peptic Ulcer Disease.Gastritis. --07:52 09/10/20 Haim Anderson R.N. 2 Clinical Report - Nurses [facility] [address] [place] [address] Phone #: ext- [phone] 09/10/2020 07:38 Patient: TRENA BRYANT [facility]#: [id number] Sex: F : 1960 Age: 60y ADDITIONAL SURGERIES: Bariatric Surgery. Cholecystectomy. Cyst removed. --07:40 09/10/20 Maite Lock R.N. Previous Abdominal Surgery. Stomach ulcer. --07:52 09/10/20 Haim Anderson R.N. History PAST MEDICAL HX: Immunizations: up-to-date. The patient is post-menopausal. SOCIAL HX: Smoker- current status unknown (quit 1978). Occasional alcohol use. No drug use. The patient was offered HIV testing but declined and hepatitis C testing but declined. The patient has not traveled outside the [place] Infectious disease exposure: No infectious disease exposure. Patient is not a known carrier of tuberculosis, hepatitis, HIV, MRSA or VRE. Patient is not a known carrier of CRE. SELF HARM ASSESSMENT: Self harm assessment was performed. The patient answered "no" to the question(s) "Have you recently felt down, depressed, or hopeless?", "Do you have thoughts of harming or killing yourself?", "Do you have a plan for harming or killing yourself?", "Have you recently had thoughts about harming or killing others?", "Do you have any dangerous items in your possession?", "Have you noticed less interest or pleasure in doing things?", "Are you here because you tried to hurt yourself?" and "Have you ever tried to hurt yourself before today?". ABUSE ASSESSMENT: Abuse assessment. Abuse denied. No suspicion of abuse. No report of abuse. NUTRITIONAL RISK ASSESSMENT: The nutritional risk assessment revealed no deficiencies. FUNCTIONAL ASSESSMENT: Functional assessment: no impairments noted. LEARNING NEEDS ASSESSMENT: The learning needs assessment revealed no barriers. FALL RISK ASSESSMENT: Fall risk assessment completed. No risk factors identified. SKIN INTEGRITY ASSESSMENT: Skin integrity risk assessment completed. No skin integrity risk identified. --07:45 09/10/20 Maite Lock R.N. Interventions Identification band on patient. To treatment room. --07:45 09/10/20 Maite Lock R.N.PHYSICAL ASSESSMENTGENERAL / NEURO / PSYCH: Alert. Appears in no acute distress.HEENT: No facial asymmetry noted. ( itchy eyes, painful eye lids).RESPIRATORY: Respirations not labored.CVS: Capillary refill less than 2 seconds. 3 Clinical Report - Nurses [facility] [address] [place] [address] Phone #: ext- [phone] 09/10/2020 07:38 Patient: TRENA BRYANT Sex: F : 1960 Age: 60y SKIN: Skin is dry but cool. --07:46 09/10/20 Maite Lock R.N.NURSING PROGRESS NOTESPatient gowned. Reassurance given. Two patient identifiers checked. Call light placed in reach. Siderails up x 2. Bed placed in lowest position. Brakes of bed on. Patient ready for evaluation. --07:4609/10/20 Maite Lock R.N. 08:39 09/10/2020 Zyrtec (Cetirizine HCl) PO Tablets 10 mg given. Allergies verified and confirmed 5 rights. Information reviewed with patient including reason for taking this medication, signs of allergic reaction and precautions. Verbalizes understanding. --08:39 09/10/20 Haim Anderson R.N.DISPOSITION / DISCHARGE 08:59 09/10/20. Departure time: 09:05 09/10/2020. Condition at departure: improved and stable. The goals identified in the patient's plan of care were met. Fall risk assessment completed. No risk factors identified. No learning barriers present. Discharge instructions provided and reviewed with the patient. Reviewed warnings. Reviewed medication(s) side effects, precautions, dosing and course information. Prescription(s) sent electronically to pharmacy. Treatments reviewed. Reviewed referral to an ear, nose, and throat specialist (v groove cutter) and a primary care physician. Patient verbalized understanding. Written instructions provided in Bermudian. The patient was discharged by the physician. She was discharged home. She left ambulatory and via private vehicle. Patient driving. --09:05 09/10/20 Haim Anderson R.N. 09:04 09/10/20. BP: deferred. HR: deferred. RR: deferred. O2 saturation: deferred. Temp: deferred. Pain level now: 0/10. --09:05 09/10/20 Haim Anderson R.N.Locked/Released at 09/10/2020 09:17 by Haim Anderson R.N. Name Value Range Interpretation Code Description Data Kimberly rce(s) Supporting Document(s) ID Date Data Source [id number] 09/10/2020 07:39:00 AM [facility] 1 Clinical Report - Physicians/Mid Levels [facility] Department [address] [place] [address] Phone #: ext- [phone] 09/10/2020 07:38 Patient: TRENA BRYANT Sex: F : 1960 Age: 60y Time Seen: 07:51 09/10/2020; initial patient contact. Arrived- By private vehicle. Historian- patient. Disposition decision: 08:50 09/10/2020.HISTORY OF PRESENT ILLNESS Chief Complaint: EYE IRRITATION and EYELID SWELLING. This started 1 week ago, involves the right and left eye and is characterized as moderate in severity. The patient did not sustain an injury. Eye burning and irritation. Eyelid swelling. ( used a new mascara last week, stopped it 5 days ago but used another one; lids more swollen this am, better now; has had problem w rt eyelid for yrs and her eye md knows about and she even had drops in the past).REVIEW OF SYSTEMSNo fever, sore throat or cough. All other systems reviewed and are negative.PAST HISTORYSee nurses notes. Tetanus immunization status is up-to-date. Problems: Gallstone(s). Peptic Ulcer Disease. Gastritis. Additional Surgeries: Bariatric Surgery. Cholecystectomy. Cyst removed. Previous Abdominal Surgery. Stomach ulcer. Medications: None. Allergies: None.SOCIAL HISTORYFormer smoker. Occasional alcohol use. No drug use .ADDITIONAL NOTESThe nursing notes have been reviewed with agreement regarding the chief complaint, HPI, ROS, PMH andpatient medications and allergies. 2 Clinical Report - Physicians/Mid Levels [facility] [address] [place] [address] Phone #: ext- [phone] 09/10/2020 07:38 Patient: TRENA BRYANT Sex: F : 1960 Age: 60yPHYSICAL EXAMVital Signs: 09/10/2020 07:38 BP: 124/81. MAP: 95. HR: 58. RR: 18. O2 saturation: 98%. Temp: 97.9 F.Pain level now: 410. Have been reviewed. Oxygen saturation normal.Appearance: Alert. Oriented X3. No acute distress.HEENT: Nose normal. Pharynx normal. Head appears normal to external in spection.Eyes: Conjunctivae and sclerae appear normal to inspection. Corneas appear normal to inspection.Pupils equal, round and reactive to light. Accommodation normal. Funduscopic exam normal. Visualfields normal. EOMs intact. Anterior chambers clear. Anterior chambers of normal depth.Rt Eye: Mild eyelid edema (upper). No eyelid erythema, conjunctival edema, subconjunctival hemorrhageor injury to the sclera. No stye present. No injury to the eyelids. Conjunctiva not injected. No exudatepresent.Lt Eye: Mild eyelid edema (upper). No eyelid erythema, conjunctival edema, subconjunctival hemorrhageor injury to the sclera. No stye present. No injury to the eyelids. Conjunctiva not injected. No exudatepresent.Neck: Neck supple. Normal inspection.Skin: No rash.PROGRESS AND PROCEDURESCourse of Care: 08:45 09/10/20. pt has probable local allergic reaction to mascara; told to stop using it fora while and will give some zyrtec x 2 weeks; advised to use benadryl as needed for itchiness and OTCtears prn and to f/u w her eye md; pt understands and agrees. Patient counseled in person regarding the patient's stable condition, diagnosis and need for follow-up. Patient agrees with plan of care. Disposition: Condition: good and stable. Discharge decision based on the following: patient's condition is stable; patient's condition is improved; patient is ambulatory; patient is active; patient drinking fluids; patient eating; patient's pain is controlled; patient's exam is improved; improving condition on repeat evaluation; social support is good; transportation is available; follow-up is available; clinical impression is consistent with outpatient treatment.CLINICAL IMPRESSION Localized allergic reaction secondary to mascara (B/L upper lid swelling).INSTRUCTIONS (PLEASE STOP USE OF MASCARA FOR AT LEAST 1 WEEK; USE COLD COMPRESSES NEEDED). Warnings: Further evaluation is necessary (eye MD). It is very important to follow up with a healthcare provider. 3 Clinical Report - Physicians/Mid Levels [facility] [address] [place] [address] Phone #: ext- [phone] 09/10/2020 07:38 Patient: TRENA BRYANT Sex: F : 1960 Age: 60y GENERAL WARNINGS: Return or contact your physician immediately if your condition worsens or changes unexpectedly, if not improving as expected, or if other problems arise. Specifically return if pain, vomiting, bleeding, breathing difficulty or fever greater than 102 degrees F and not controlled by olesya taminophen or ibuprofen. Your Current Medications: . No home medication. Prescription Medications: Benadryl Allergy 25 mg tablet Take 1 tablet four times a day as needed for 5 days -- Dispense 20 tablet. Refills: 1. Substitution permitted. [facility] ; [place], [place] [phone]. . Zyrtec 10 mg tablet Take 1 tablet once a day for 14 days -- Dispense 14 tablet. Refills: 1. Substitution permitted. [facility] [address] [facility] ; [place], [place] [phone]. . Follow- up: Return to the emergency department as needed. Follow up with an welding lead burner in three days even if well. Call for an appointment. Reason for referral: evaluation and treatment. Summary of care provided to patient via paper. Understanding of the discharge instructions verbalized by patient. Expected course of illness, discharge instructions, activity level, diet, prescriptions x2, follow-up appointment and risks and benefits of treatment reviewed with patient and understanding verbalized. Agrees to plan of care.(Electronically signed by Shiv Vásquez M.D. 09/10/2020 12:24) Name Value Range Interpretation Code Description Data Kimberly rce(s) Supporting Document(s) ID Date Data Source [id number] 06/30/2020 11:13:00 AM EST [facility] ([facility]) Name Value Range Interpretation Code Description Data Kimberly rce(s) Supporting Document(s) Ferritin [Mass/volume] in Serum or Plasma 48 ng/mL 8-252 [facility]) ID Date Data Source [id number] 06/30/2020 11:12:00 AM EST [facility] ([facility]) Name Value Range Interpretation Code Description Data Kimberly rce(s) Supporting Document(s) Thyrotropin [Units/volume] in Serum or Plasma by Detec tion limit <= 0.05 mIU/L 2.74 uIU/mL 0.36-3.74 [facility] ([facility] ) ID Date Data Source [id number] 06/30/2020 11:12:00 AM EST [facility] ([facility]) Name Value Range Interpretation Code Description Data Kimberly rce(s) Supporting Document(s) Cholesterol [Mass/volume] in Serum or Plasma 172 mg/dL 131-200 [facility] ([facility]) Cholesterol in LDL [Mass/volume] in Serum or Plasma by calcu lation 76 CALC 50-159 [facility] ([facility]) Triglyceride [Mass/volume] in Serum or Plasma 95 mg/dL 30-150 [facility] ([facility]) Cholesterol in HDL [Mass/volume] in Serum or Plasma 77 mg/dL 35-60 [facility] ([facility]) ID Date Data Source [id number] 06/30/2020 11:12:00 AM EST [facility] ([facility]) Name Value Range Interpretation Code Description Data Kimberly rce(s) Supporting Document(s) Glucose [Mass/volume] in Serum or Plasma 96 mg/dL 74-99 [facility] ([facility]) 100-125 mg/dL PRE-DIABETES/FASTING >126 mg/dL DIABETES/FASTING Urea nitrogen [Mass/volume] in Serum or Plasma 10 mg/dL 7-18 [facility] ([facility]) Creatinine 0.7 mg/dL 0.6-1.3 [facility] ([facility]) Sodium [Moles/volume] in Serum or Plasma 144 meq/L 136-145 [facility] ([facility]) Potassium [Moles/volume] in Serum or Plasma 4.2 meq/L 3.5-5.1 [facility] ([facility]) Calcium [Mass/volume] in Serum or Plasma 8.8 mg/dL 8.5-10.1 [facility] ([facility]) Chloride [Moles/volume] in Serum or Plasma 107 meq/L 98-107 [facility] ([facility]) Carbon dioxide, total [Moles/volume] in Serum or Plasma 30 meq/L 21 -32 [facility] ([facility]) Total Bilirubin 0.6 mg/dL 0.2-1.0 [facility] ([facility]) Alkaline phosphatase isoenzyme [Units/volume] in Serum or Pl asma 86 mg/dL 46-116 [facility] ([facility]) Aspartate aminotransferase [Enzymatic activity/volume] in Serum or Plasma 27 U/L 15-37 [facility] ([facility] ) Alanine aminotransferase [Enzymatic activity/volume] in Seru m or Plasma 23 U/L 12-78 [facility] A/G Ratio 1.33 CALC 1.00-1.90 [facility] Proteinase 3 Ab [Units/volume] in Serum 6.3 g/dL 6.4-8.2 [facility]) Albumin [Mass/volume] in Serum or Plasma 3.6 g/dL 3.4-5.0 [facility]) Glomerular filtration rate/1.73 sq M pre dicted among blacks [Volume Rate/Area] in Serum or Plasma by Creatinine-based formula (MDRD) Laboratory test [facility] <content>CHRONIC KIDNEY DISEASE STAGING PER NKF</content>
<content></content>
<content>STAGE I & II GFR >= 60 NORMAL TO MILDLY DECREASED</content>
<content>STAGE III GFR 30-59 MODERATELY DECREASED</content>
<content>STAGE IV GFR 15-29 SEVERELY DECREASED</content>
<content>STAGE V GFR <15 VERY LITTLE GFR LEFT</content>
<content>ESRD GFR <15 ON APPEALS ASSISTANT</content>
<content></content> Glomerular filtration rate/1.73 sq M pre dicted among non-blacks [Volume Rate/Area] in Serum or Plasma by Creatinine-based formula (MDRD) Laboratory test result [facility] ([facility] ) Procedure Social History No Information Vital Signs ID Date Data Source UNK Name Value Range Interpretation Code Description Data Source(s) Body mass index (BMI) [Ratio] 41.6 kg/m2 41.6 k g/m2 [facility] Body height 63 [in_i] 63 [in_i] [facility] 5'3" Body weight 235.00 [lb_av] 235.00 [lb_av] [facility] T ([facility]) Systolic blood pressure 130 mm[Hg] 130 mm[Hg] M ED[facility] ([facility]) Diastolic blood pressure 82 mm[Hg] 82 mm[Hg] [facility]) Heart rate 67 /min 67 /min [facility] Body weight 106.596 kg 106.596 kg [facility] ([facility]) Body temperature 97.6 [degF] 97.6 [degF] [facility] ([facility]) Systolic blood pressure 128 mm[Hg] 128 mm[Hg] M [facility] ([facility]) Diastolic blood pressure 78 mm[Hg] 78 mm[Hg] [facility] ([facility]) Heart rate 60 /min 60 /min [facility]) Body weight 231.00 [lb_av] 231.00 [lb_av] [facility] T ([facility]) Diastolic blood pressure 76 mm[Hg] 76 mm[Hg] [facility] ([facility]) Heart rate 72 /min 72 /min [facility] ([facility]) Body weight 241.00 [lb_av] 241.00 [lb_av] [facility] T ([facility]) Systolic blood pressure 126 mm[Hg] 126 mm[Hg] M [facility] ([facility]) Body weight 246.0 [lb_av] 246.0 [lb_av] eCW1 ([facility]) Body height 63.25 [in_i] 63.25 [in_i] W1 ([facility]) Body mass index (BMI) [Ratio] 43.23 kg/m2 43.23 kg/m2 W1 ([facility]) Systolic blood pressure 110 mm[Hg] 110 mm[Hg] e CW1 ([facility]) Diastolic blood pressure 80 mm[Hg] 80 mm[Hg] eCW1 ([facility]) Body temperature 98.2 [degF] 98.2 [degF] [facility] ([facility] ) Body height 63 [in_i] 63 [in_i] [facility] ([facility]) 5'3" Body weight 251.00 [lb_av] 251.00 [lb_av] MED[facility] T ([facility] ) Body mass index (BMI) [Ratio] 44.5 kg/m2 44.5 k g/m2 [facility] ([facility] ) Systolic blood pressure 130 mm[Hg] 130 mm[Hg] M ED[facility] ([facility]) Diastolic blood pressure 80 mm[Hg] 80 mm[Hg] [facility] ([facility]) Heart rate 70 /min 70 /min [facility] ([facility]) Body height 62.75 [in_i] 62.75 [in_i] [facility] ([facility]) 5'2.75" Body weight 242.00 [lb_av] 242.00 [lb_av] MEDEN T ([facility]) Body mass index (BMI) [Ratio] 43.2 kg/m2 43.2 k g/m2 [facility] ([facility])
--- OUTSIDE RECORDS SUMMARY | 2021-05-20 10:30 | CCD ---
Author Author [facility] Organization [facility] Address Unknown Phone Unavailable Care Team Providers Care Pinion Sorter Name Role Phone Monisha Bailey Unavailable PROBLEMS Type Condition ICD9-CM Code [id number] Code Onset Dates Condition S tatus W/U Status Risk SNOMED Code Notes Problem Symptomatic menopausal or female climacteric states 627.2 Active confirmed 90503929 Problem Contact dermatitis and other eczema, due to unspecified ca use 692.9 Active confirmed 12293288 Problem Weight gain 783.1 Active confirmed 2872735 Problem Vaginal atrophy 627.3 Active confirmed 2971 88645 Problem Edema 782.3 Active confirmed 661648535 Problem Fatigue 780.79 Active confirmed 67985735 Problem Pain in joint, pelvic region and thigh 719.45 A ctive confirmed 032739355 Problem Other seborrheic keratosis 702.19 Active confirmed 595164740 lesions of concern on back Problem Flat wart 078.19 Active confirmed 963669395 multiple flat warts on right mandible Problem Papanicolaou smear of cervix with low grade squamous intraepithelial lesion (LGSIL) 795.03 Active confirmed 610322939 Problem Cervicalgia 723.1 Active confirmed 06243927 Problem Cervical high risk human papillomavirus (HPV) DN A test positive R87.810 Active confirmed 439717045 Problem Disturbance of skin sensation 782.0 Active confirm ed 773457950 Problem Milium 706.2 Active confirmed 97356235 Problem Benign neoplasm of skin of trunk, except scrotum 216.5 Active confirmed 098083362 Problem ASCUS with positive high risk HPV cervical 795.01 Active confirmed 162449823 Problem Cervical high risk human papillomavirus (HPV) DN A test positive 795.05 Active confirmed [id number] ALLERGIES Allergen (clinical drug ingredient) Drug/Non Drug Allergy do cumented on EMR Reaction Allergy Type Onset Date Status folic acid folic acid facial swelling/ itching Drug Allergy Active ENCOUNTERS from 1960 to 2021-03-13 Encounter Location Date Provider Diagnosis [facility] [phone] [place] [address] Feb, Monisha Nievesc IMMUNIZATIONS No Information SOCIAL HISTORY Sex Assigned At : Social History Observation Description Sex Assigned At Unknown Sexual Hx: Question Answer Notes Had sex in the last 12 months (vaginal, oral, or anal)? Yes LMP: menopause Have you ever had an STD? Yes with Men only Use protection? No Other? Yes Herpes? No Syphilis? No GC? No Chlamydia? No Alcohol Screening: Question Answer Notes Did you have a drink containing alcohol in the past year? Ye s Points 3 Interpretation Positive How often did you have six or more drinks on one occas ion in the past year? Less than monthly (1 point) How many drinks did you have on a typica l day when you were drinking in the past year? 1 or 2 (0 points) How often did you have a drink containing alcohol in t he past year? Two to four times a month (2 points) BMI Care Goal Follow-Up Question Answer Notes Above Normal BMI Follow-Up Dietary needs education, Gi ving encouragement to exercise, Weight monitoring REASON FOR REFERRAL No Information VITAL SIGNS No information MEDICATIONS Medication SIG (Take, Route, Frequency, Duration) Notes Start Da te End Date Status NexIUM 40 mg 1 tab(s) Orally once a day Not-Taking Tums 500 MG 1 tablet Orally Four times a day as needed Active Magnesium 500 MG 1 tablet with a meal Orally Once a day Active Tylenol Extra Strength 500 MG 3 tablets as needed Orally every 6 hrs Not-Taking Calcium 500 MG 1 tablet with meals Orally Daily Active Estrace 0.1 MG/GM 1/2 gram Vaginal 2 x weekly @ hs Jul, Not-Taking Triamcinolone Acetonide 0.1 % 1 application to affecte d area Externally Twice a day for 1 week for 30 day(s) Jul, Not -Taking Hydrochlorothiazide 12.5 12.5mg 1 tab(s) p.o. as needed Not-Taking Probiotic 1 tab Orally daily Not-Ta inna Vitamin C 1000 MG 1 tablet Orally Once a day for 30 day(s) Not-Taking Topamax 50 MG 1 tablet at bedtime Orally Once a day Not-Taking iron Active Multivitamins 1 tab Orally daily Not -Taking PROCEDURES No Information RESULTS No Results REASON FOR VISIT No Information MEDICAL (GENERAL) HISTORY Type Description Date Medical History GERD Medical History migraine headaches Medical History hx small uterine fibroid Medical History hx obesity Medical History postmenopause Medical History fatigue Medical History weight gain Medical History Edema Medical History 2015 abnormal pap with LEEP x 2 Surgical History Cholecystecomy 1992 Surgical History bariatric surgery 2006 Surgical History removal of cyst from spine (pilonidal cy st) 1978 Surgical History colonoscopy 2007 & 06/02/16 Surgical History LEEP Surgical History LEEP 04/2015 Surgical History colposcopy with kris 07/24/14 Surgical History colposcopy with monisha 08/02/16 Hospitalization History Surgery related Hospitalization History Migraine related Goals Section No Information Health Concerns No Information MEDICAL EQUIPMENT No Information MENTAL STATUS No Information FUNCTIONAL STATUS No Information ASSESSMENTS No Information PLAN OF TREATMENT Next Appt Details Provider Name:Flash Eleno Ferreirali, 06-26 01:00:00 PM, [address] [place] [address], , [place], [address], Insurance Providers Payer Name Payer Address Payer Phone Insured Name Patient Relati onship to Insured Coverage Start Date Coverage End Date BCBS CYRIL CESPEDES PPO [phone] [facility] [employer] [place] [id number] TRENA BRYANT self
--- OUTSIDE RECORDS SUMMARY | 2021-05-20 10:30 | CCD | Continuity of Care Document ---
Author Author Dalila WERNER M.D. Organization Unknown Address [address] [place] [address] Phone [phone] Care Team Providers Care Soft Crab Shedder Name Role Phone Thad Duque M.D. AUTM [phone] Problems Active Problems Provider Date Neck pain [...] Information Available Procedures Date Code Description Status 03/05/2021 45198 Office/Outpatient New Moderate M DM 45-59 Minutes Completed Medical Devices Description No Information Available Encounters Type Date Location Provider Dx Diagnosis Office Visit 03/05/2021 8:30a Main [facility] - [facility] M54.2 Cervicalgia M43.02 Spondylolysis, cervical mathieu on M43.06 Spondylolysis, lumbar region M54.5 Low back pain M54.16 Radiculopathy, lumbar region M54.12 Radiculopathy, cervical mathieu on G56.03 Carpal tunnel syndrome, bila teral upper limbs Assessments Date Code Description Provider 03/05/2021 M54.2 Cervicalgia Elbert Werner M.D. 03/05/2021 [...]
--- OUTSIDE RECORDS SUMMARY | 2021-05-20 10:30 | CCD | Continuity of Care Document ---
Author Author Dalila WERNER M.D. Organization Unknown Address [address] [place] [id number] Phone [phone] Care Team Providers Care Meter And Regulator Shop Supervisor Name Role Phone Thad Duque M.D. AUTM [phone] Problems Active Problems Provider Date Neck pain [...] Available Procedures Date Code Description Status 03/05/2021 90769 Office/Outpatient New Moderate M DM 45-59 Minutes Completed Medical Devices Description No Information Available Encounters Type Date Location Provider Dx Diagnosis Office Visit 03/05/2021 8:30a Main office - [facility] M54.2 Cervicalgia M43.02 Spondylolysis, cervical mathieu [...] 9:00 am - Elbert Werner M.D. at [facility] * 03/16/2021 2:00 pm - Elbert Werner M.D. at [facility] Functional Status Description No Information Available Mental Status Description No Information Available Referrals Description No Information Available
[2021-05-20] MEDS ORDERED: LIDOCAINE 2% 100MG/5ML SDV (FOR ANES.) As Ordered ONE (10:34)
[2021-05-20] MEDS ORDERED: propofoL 200 MG/20 ML VIAL As Ordered ONE (10:34)
--- NOTE | 2021-05-20 11:43 | ROOR ---
Patient Name: Dalila Li Procedure Date: 05/20/2021 11:17 AM Date of : 1960 Age: 60 Room: [facility] Gender: Female Note Status: Finalized Procedure: Total Colonoscopy to Cecum + ileoscopy Indications: Colon cancer screening in patient at increased risk: Colorectal cancer in father, Last colonoscopy: 2015 Providers: Luis Reyes MD Referring MD: Thad Duque MD Requesting Provider: Medicines: Monitored Anesthesia Care Complications: No immediate complications. Procedure: Pre-Anesthesia Assessment: - The heart rate, respiratory rate, oxygen saturations, blood pressure, adequacy of pulmonary ventilation, and response to care were monitored throughout the procedure. The Colonoscope was introduced through the anus and advanced to the cecum, identified by appendiceal orifice and ileocecal valve. The colonoscopy was performed without difficulty. The patient tolerated the procedure well. The quality of the bowel preparation was excellent. Findings: The perianal and digital rectal examinations were normal. Non-bleeding internal hemorrhoids were found during retroflexion. The hemorrhoids were small and Grade I (internal hemorrhoids that do not prolapse). No other significant abnormalities were identified in a careful examination of the remainder of the colon. The exam was otherwise without abnormality on direct and retroflexion views. The terminal ileum appeared normal. Impression: - Non-bleeding internal hemorrhoids. - The examination was otherwise normal on direct and retroflexion views. - The examined portion of the ileum was normal. - No specimens collected. - The exam was otherwise normal to the cecum. Recommendation: - Patient has a contact number available for emergencies. The signs and symptoms of potential delayed complications were discussed with the patient. Return to normal activities tomorrow. Written discharge instructions were provided to the patient. - High fiber diet. - Discharge patient to home. - Continue present medications. - Repeat colonoscopy in 5 years for screening purposes. - Return to referring physician. - The findings and recommendations were discussed with the patient. Procedure Code(s): --- Professional --- G0105, Colorectal cancer screening; colonoscopy on individual at high risk Diagnosis Code(s): --- Professional --- Z80.0, Family history of malignant neoplasm of digestive organs K64.0, First degree hemorrhoids CPT copyright 2019 [employer]. All rights reserved. The codes documented in this report are preliminary and upon photo graphics librarian review may be revised to meet current compliance requirements. Luis Reyes MD Luis Reyes MD 05/20/2021 11:42:51 AM Electronically signed by Luis Reyes MD Number of Addenda: 0 Note Initiated On: 05/20/2021 11:17 AM Estimated Blood Loss: Estimated blood loss: none.
[2021-05-20 12:00] VITALS: BP 140/82
== END 2021-05-20 12:16 | disposition home or self-care (01) ==
LOC: M OPP 10:25
PROVIDERS: ATTEND Internal Medicine Gastroenterology
DX: Z12.11 Encounter for screening for malignant neoplasm of colon (principal); Z80.0 Family history of malignant neoplasm of digestive organs; K64.0 First degree hemorrhoids; Z98.84 Bariatric surgery status; Z87.891 Personal history of nicotine dependence

== ENCOUNTER → 2022-03-26 | Outpatient (REF) | payer BC ==
[~2022-03-26] MED LIST changes: -NS 1,000 ML IV ONE
== END ==
LOC: M SFHCDERM 16:33
PROVIDERS: ATTEND Nurse Practitioner Family
DX: D48.9 Neoplasm of uncertain behavior, unspecified (principal)

== ENCOUNTER → 2022-05-03 | Outpatient (REF) | payer BC | LOC: M PLALAB 16:30 | PROVIDERS: ATTEND Obstetrics & Gynecology | DX: Z12.4 Encounter for screening for malignant neoplasm of cervix (principal); R87.610 Atypical squamous cells of undetermined significance on cytologic smear of cervix (ASC-US) | CPT/HCPCS: 87624; G0123 ==

== ENCOUNTER → 2022-05-03 | Outpatient (CLI) | payer BC | LOC: M WHC 11:00 | PROVIDERS: ATTEND Obstetrics & Gynecology | DX: Z12.31 Encounter for screening mammogram for malignant neoplasm of breast (principal) ==

== ENCOUNTER → 2023-03-14 | Outpatient (REF) | payer BC | LOC: M SFHCDERM 17:30 | PROVIDERS: ATTEND Nurse Practitioner Family | DX: D48.9 Neoplasm of uncertain behavior, unspecified (principal) ==

== ENCOUNTER → 2023-05-10 | Outpatient (REF) | payer BC | LOC: M PLALAB 16:44 | PROVIDERS: ATTEND Obstetrics & Gynecology | DX: R87.610 Atypical squamous cells of undetermined significance on cytologic smear of cervix (ASC-US) (principal) | CPT/HCPCS: 87624; G0123 ==

== ENCOUNTER → 2024-06-01 | Outpatient (REF) | payer BC ==
[2024-06-01 14:11] LABS: PHOSPHORUS LEVEL 3.8 MG/DL (2.4-5.1)
[2024-06-01 14:20] LABS: FERRITIN 140.3 NG/ML (7.3-270.7); TOTAL 25(OH) VITAMIN D 31.2 NG/ML (20.0-100.0)
[2024-06-01 14:21] LABS: FOLATE 18.6 NG/ML (>5.4)
== END ==
LOC: M LAB REF 12:31
PROVIDERS: ATTEND Family Medicine
DX: Z98.84 Bariatric surgery status (principal)

== ENCOUNTER → 2024-10-03 | Outpatient (REF) | payer BC ==
[2024-10-03 13:12] LABS: RSV AMPLIFICATION NEGATIVE (NEGATIVE)
== END ==
LOC: M LAB REF 12:05
PROVIDERS: ATTEND Nurse Practitioner Family
DX: R53.83 Other fatigue (principal); R05.1 Acute cough